=== PATIENT | male | born 1960 | race African-American/Black ===

== ENCOUNTER 2021-11-07 06:41 | Emergency (ER) | payer OTHER, MEDICAID ==
[~2021-11-07] VITALS: Ht 177.8 cm; Wt 76.0 kg
[2021-11-07 07:54] LABS: BASOPHILS % 0.3 % (0.0-2.0); CHLORIDE 97 mEq/L (98-107); EOSINOPHILS % 3.7 % (0.0-5.0); HEMATOCRIT. 42.2 % (42.0-52.0); HEMOGLOBIN. 14.5 g/dL (14.0-18.0); LYMPHOCYTES % 26.9 % (20.0-50.0); MEAN CORPUSCULAR VOLUME 84.3 fL (80.0-94.0); MEAN PLATELET VOLUME 9.3 fl (7.4-10.4); MONOCYTES % 7.7 % (2.0-8.0); NEUTROPHILS % 61.4 % (40.0-76.0); PLATELET 187 x1000/uL (130-400); RED BLOOD CELL COUNT 5.01 mill/uL (4.7-6.1); RED CELL DISTRIBUTION WIDTH 12.9 % (11.6-14.6)
[2021-11-07 08:04] LABS: BETA HYDROXYBUTYRATE 1.6 mMol/L (0.0-0.3)
[2021-11-07] MEDS ORDERED: SODIUM CHLORIDE 0.9% 1,000 ML IV ONE (08:30)
[2021-11-07] MEDS ORDERED: INSULIN REGULAR (HUMULIN R) 300UNITS/3ML VIAL IV ONE (10:00)
[2021-11-07 11:08] LABS: BG BASE EXCESS 1.5 mmol/L (-2.0-2.0); BG CARBOXYHEMOGLOBIN 0.7 % (0.5-1.5); BG DEOXYHEMOGLOBIN 3.8 % (0.0-5.0); BG FRACTION INSPIRED OXYGEN 21; BG HCO3 ACT 26.3 mmol/L (22.0-26.0); BG METHEMOGLOBIN 0.2 % (0.0-1.5); BG OXYGEN SATURATION 96.2 % (92.0-98.5); BG OXYHEMOGLOBIN 95.3 % (94.0-97.0); BG PCO2 42.2 mmHg (35.0-45.0); BG PH 7.413 (7.350-7.450); BG PO2 85.8 mmHg (75.0-100.0); BG SAMPLE SITE RIGHT RADIAL; BG TOTAL HEMOGLOBIN 14.5 g/dL (12.0-18.0); BG VENT MODE ROOM AIR
[2021-11-07] MEDS ORDERED: METF-873 PO (11:13)
[2021-11-07] MEDS ORDERED: BLOO-1747 MC (11:15)
[2021-11-07 11:56] VITALS: BP 127/70
== END 2021-11-07 12:04 | disposition home or self-care (01) ==
LOC: ER 06:41
DX: E11.65 Type 2 diabetes mellitus with hyperglycemia (principal); E78.00 Pure hypercholesterolemia, unspecified
CPT/HCPCS: 36415; 36600; 71045; 80053; 82010; 82375; 82805; 82962; 84484; 85025; 96374; 99284; J1815; J7030

== ENCOUNTER 2023-11-24 09:33 | Emergency (ER) | payer OTHER, MEDICAID ==
[~2023-11-24] VITALS: Ht 177.8 cm; Wt 90.7 kg
[~2023-11-24 09:33] MED LIST: BLOO-1747 MC; METF-873 PO
[2023-11-24 09:43] VITALS: BP 135/79; PULSE 91; RESP 16; TEMP 98.1; O2SAT 97
[2023-11-24 10:24] LABS: BASOPHILS % 0.5 % (0.0-2.0); EOSINOPHILS % 2.8 % (0.0-5.0); HEMATOCRIT. 42.6 % (42.0-52.0); HEMOGLOBIN. 14.6 g/dL (14.0-18.0); LYMPHOCYTES % 22.7 % (20.0-50.0); MEAN CORPUSCULAR HEMOGLOBIN 29.6 pg (28.0-32.0); MEAN CORPUSCULAR HGB CONC 34.2 g/dL (31.0-37.0); MEAN CORPUSCULAR VOLUME 86.5 fL (80.0-94.0); MEAN PLATELET VOLUME 8.7 fl (7.4-10.4); MONOCYTES % 8.1 % (2.0-8.0); NEUTROPHILS % 65.9 % (40.0-76.0); PLATELET 224 x1000/uL (130-400); RED BLOOD CELL COUNT 4.93 mill/uL (4.7-6.1); RED CELL DISTRIBUTION WIDTH 13.3 % (11.6-14.6); WHITE BLOOD COUNT 4.8 x1000/uL (4.5-11.0)
[2023-11-24 10:45] LABS: ALANINE AMINOTRANSFERASE 53 IU/L (10-49); ALBUMIN 4.7 g/dL (3.2-4.8); ASPARTATE AMINOTRANSFERASE 29 IU/L (<34); CALCIUM 9.8 mg/dL (8.7-10.4); CARBON DIOXIDE 28 mEq/L (21-32); CHLORIDE 105 mEq/L (98-107); CREATININE 1.4 mg/dL (0.6-1.3); POTASSIUM 4.5 mEq/L (3.5-5.1); PROTEIN TOTAL 8.1 g/dL (6.0-8.3); SODIUM 143 mEq/L (136-145); UREA NITROGEN BLOOD 20 mg/dL (9-23)
[2023-11-24 10:47] LABS: GLUCOSE 244 mg/dL (70-105); TROPONIN I HIGH SENSITIVITY < 4 ng/L (3.0-53)
[2023-11-24 12:45] LABS: TROPONIN I HIGH SENSITIVITY < 4 ng/L (3.0-53)
== END 2023-11-24 13:12 | disposition home or self-care (01) ==
LOC: ER 09:33
DX: E11.65 Type 2 diabetes mellitus with hyperglycemia (principal); E78.00 Pure hypercholesterolemia, unspecified
CPT/HCPCS: 36415; 71045; 80053; 82962; 83880; 84484; 85025; 93005; 99285